=== PATIENT | female | born 1995 | race Two or more races ===

== ENCOUNTER 2021-03-20 01:34 | Emergency (ER) | payer OTHER ==
[~2021-03-20] VITALS: Ht 170.2 cm; Wt 59.0 kg
== END 2021-03-20 03:49 | disposition home or self-care (01) ==
LOC: ER 01:34
DX: B34.9 Viral infection, unspecified (principal); Z03.818 Encounter for observation for suspected exposure to other biological agents ruled out; R50.9 Fever, unspecified; R53.81 Other malaise; R05 Cough